=== PATIENT | male | born 2000 | race Caucasian/White ===

== ENCOUNTER → 2019-01-29 17:03 | Outpatient (CLI) | payer OTHER, SELFPAY ==
--- NOTE | 2019-01-29 17:13 | RAD_ITS ---
HISTORY: Left hip pain times several weeks, no history of injury XR Femur Min 2 Views TECHNIQUE: 2 views # of images incl. paperwork: 4 COMPARISON: None. FINDINGS: No acute fracture or dislocation. Normal left hip joint. Soft tissues appear unremarkable. No radiopaque foreign body. RAD/Femur Min 2 Views IMPRESSION: 1. Negative examination. at 9232 Reported and signed by: Panda Marquez MD Electronically Signed: Panda Marquez MD at 21:07 EDT Tel , Service support ,
--- NOTE | 2019-01-29 17:14 | RAD_ITS ---
HISTORY: pain near the left hip for several weeks, no injury XR Pelvis 1 or 2 Views TECHNIQUE: 1 view # of images incl. paperwork: 1 COMPARISON: None. FINDINGS: No acute fracture or dislocation. Joint spaces are well-preserved. Soft tissues appear unremarkable. No radiopaque foreign body. RAD/Pelvis 1 or 2 Views IMPRESSION: 1. Negative examination. at 2108 Reported and signed by: Panda Marquez MD Electronically Signed: Panda Marquez MD at 21:08 EDT Tel , Service support ,
== END ==
PROVIDERS: Family Provider Family Medicine; PCP Family Medicine; Referring Provider Family Medicine; Visit Provider Family Medicine
DX: M79.605 Pain in left leg (principal)
CPT/HCPCS: 72170; 73552

== ENCOUNTER 2024-02-29 20:32 | Emergency (ER) | payer OTHER, BC, SELFPAY ==
[2024-02-29 20:32] VITALS: BP 145/98; PULSE 72; RESP 16; TEMP 36.6; O2SAT 100; BMI 25.9
[2024-02-29] MEDS: Lidocaine 1% (20 ml mdv) 20 ML Vial INFILT (23:27)
[2024-03-01 00:32] VITALS: RESP 18
[2024-03-01] MEDS: HYDROcodone Bitartrate/Apap 5/325 Tablet PO (00:57)
--- NOTE | 2024-03-01 01:04 | EDS_ITS ---
HPI History of Present Illness Chief Complaint: Laceration Narrative Narrative: 23-year-old male who denies significant past medical history presents with laceration to the tip of his left index finger that he sustained while using a box car washer. He was trying to open a box, and the tip of his finger was cut including the nail. He is right-hand dominant. He denies other injury. This happened prior to arrival. He states his tetanus immunization was in the last 4 years. He has intermittently been putting a tourniquet on his finger to help stop the bleeding. PFSH PFSH Medical History no medical history Home Medications ?Medication ?Instructions ?Recorded ?Last Taken ?Type cephalexin 500 mg capsule 500 mg PO Q8H #15 caps 04/19/22 Unknown Rx famotidine 20 mg tablet 20 mg PO DAILY 04/19/22 Unknown History hydrocodone-acetaminophen 5-325mg 1 tab PO Q6H PRN PRN Pain 3 days 03/01/24 Unknown Rx 5mg-325mg #12 TABLETS Allergy/AdvReac Type Severity Reaction Status Date / Time No Known Allergies Allergy Verified 02/29/24 20:35 Social History Smoking Status: Never smoker alcohol intake: never ROS ROS ED ROS Narrative Focused review of systems is pertinent for left index fingertip laceration into the nail, and on the volar surface. No bony pain. No other injury. EXAM Physical Exam Narrative Exam Narrative: Afebrile. Vital signs noted. Focused physical examination does reveal laceration on the tip of the left index finger which runs mildly obliquely through the nail, and is approximately 1 cm on the volar finger pad. He is able to flex and extend his left index finger. Const Vital Signs: 02/29/24 20:32 Temperature 98 F Temperature Source Temporal Pulse Rate 72 Respiratory Rate 16 Blood Pressure 145/98 H Blood Pressure Mean 113 Pulse Ox 100 Oxygen Delivery Method Room Air MDM MDM MDM Narrative Medical decision making narrative: I discussed nail removal with the patient versus attempting to soften the nail. Digital block with lidocaine 1% was performed of the left index finger. The lateral half or one third of the nail was removed. Small amount of local lidocaine was used around the nailbed as well and into the laceration. He was informed of the risk of infection and scarring and acknowledges an understanding. Procedure note: I had the patient soak his left index finger prior to the procedure. As stated previously, lidocaine was used to perform a digital block of the left index finger. He did require a small amount of lidocaine locally and 4 simple interrupted sutures were used using 5 point 0 Ethilon on the volar surface of the finger pad for good skin approximation. Regarding the nailbed laceration, turnicot was applied, and the lateral third of the nail was removed. Initial attempt with 4.0 Vicryl was used to try and sew to the edge of the lac eration, but this was unsuccessful. I did remove a portion of the nailbed but the left the nail attached to the germinal matrix. Nail was cut with scissors. I was able to place 1 suture using 4-0 Vicryl for skin approximation, but more approximately, multiple attempts were tried, but the suture and needle repeatedly ripped through the capillary bed. Turnicot was removed, and light dressing applied along with pressure to achieve hemostasis. At this point in time, he had been given a Percocet for pain. And I will write him a prescription for 12 Percocet. He will continue ice and elevation. He was told that his nail should grow back, albeit with deficit or irregularities as I had left the proximal end of the nail attached. He will be placed in a Vaseline gauze dressing and have his wound checked by his primary care physician in the next few days. He was also referred to orthopedics as well. I do not feel antibiotics are indicated currently. He was also told to have these black sutures removed in 7 to 10 days. Once again, he was informed of the risk of scarring and irregularities of his left fingertip. I do not feel x-rays are currently indicated. Return instructions to the emergency department were reviewed. Disposition is discharged in stable condition. History & Record Review Discussion w/independent historian: Patient Discharge Plan Triage Chief Complaint: Laceration ED Provider: Nathaniel Gracia Dx/Rx/DC Orders Clinical Impression: Laceration of left index finger, Nailbed laceration, finger Instructions: ED Laceration, Hand: All Closures, ED FINGERNAIL REMOVAL Prescriptions: New hydrocodone-acetaminophen 5-325 mg tablet 1 tab PO Q6H PRN PRN (Reason: Pain) 3 Days Qty: 12 0RF No Action famotidine 20 mg tablet 20 mg PO DAILY cephalexin 500 mg capsule 500 mg PO Q8H Qty: 15 0RF Primary Care Provider: Will Hanson Referrals: Will Hanson DO [Primary Care Provider] - 7 Days for suture removal Keo Tucker DO [Med Staff - Active Staff] - 3-5 Days Activity Restrictions/Additional Instructions: Have your wound checked by your primary care provider or orthopedics in the next few days. Leave the Vaseline gauze dressing in place until checked by primary care. You may change the outer dressing or dry sterile dressing at least once a day. Return with signs of infection including fever, increased redness, drainage of pus from the wound, new or worsening symptoms. You have had partial removal of your nail on your index finger. It may or may not grow back completely, and it may have deficits or irregularities. Print Language: Estonian Disposition Disposition: Home, Self Care
[2024-03-01 01:23] VITALS: BP 132/60; PULSE 67; RESP 16; TEMP 36.6; O2SAT 97
== END 2024-03-01 01:24 | disposition home or self-care (01) ==
PROVIDERS: Emergency Provider Emergency Medicine; PCP Family Medicine; Visit Provider Emergency Medicine
DX: S61.311A Laceration without foreign body of left index finger with damage to nail, initial encounter (principal); W26.8XXA Contact with other sharp object(s), not elsewhere classified, initial encounter; Y93.89 Activity, other specified
CPT/HCPCS: 12001; 11750; 99283